=== PATIENT | female | born 1990 | race Caucasian/White ===

== ENCOUNTER 2022-08-24 08:29 | Outpatient (CLI) | payer OTHER, SELFPAY ==
[2022-08-24 09:23] LABS: Beta HCG Quantitative 12.22 mIU/ML
== END 2022-08-24 08:30 | disposition home or self-care (01) ==
LOC: ANHLAB 08:36
DX: Z32.02 Encounter for pregnancy test, result negative (principal)
CPT/HCPCS: 36415; 84702

== ENCOUNTER 2022-08-27 09:10 | Outpatient (CLI) | payer OTHER, SELFPAY ==
[2022-08-27 10:03] LABS: Beta HCG Quantitative 55.48 mIU/ML
== END 2022-08-27 09:11 | disposition home or self-care (01) ==
PROVIDERS: Referring Provider Obstetrics & Gynecology
DX: Z32.02 Encounter for pregnancy test, result negative (principal)
CPT/HCPCS: 36415; 84702

== ENCOUNTER 2022-10-15 09:04 | Outpatient (CLI) | payer OTHER, SELFPAY ==
[2022-10-15 09:52] LABS: Beta HCG Quantitative 331.33 mIU/ML
== END 2022-10-15 09:05 | disposition home or self-care (01) ==
DX: Z32.02 Encounter for pregnancy test, result negative (principal)
CPT/HCPCS: 36415; 84702

== ENCOUNTER 2025-05-04 14:14 | Emergency (ER) | payer OTHER, SELFPAY ==
[2025-05-04 14:29] VITALS: BP 122/73; PULSE 64; RESP 20; TEMP 36.4; O2SAT 100
--- NOTE | 2025-05-04 15:08 | ED_ITS ---
HPI - General Adult General Chief complaint: Back Pain/Injury Stated complaint: Back Pain Time Seen by Provider: 05/04/25 15:09 Source: patient, RN notes reviewed and old records reviewed Mode of arrival: ambulatory Limitations: no limitations History of Present Illness HPI narrative: 34-year-old female presents to the [facility] with right flank pain this started yesterday, now radiating into the right sided abdominal area. Patient reports that it started yesterday. Did take an ibuprofen and a muscle relaxer with no relief. States that she did take muscle relaxer also this morning with no relief. Patient reports nausea. States the pain has been increasing. Denies any frequency or urgency or burning with urination. denies fevers. Denies chest pain or shortness of breath. No URI symptoms patient reports something similar approximately 7-10 years ago, was prescribed a steroid and pain medication. Unsure of diagnosis thinks it might of been pleurisy or a pleural effusion Onset (ago): day(s) (1) Treatments prior to arrival: NSAID and other ( Muscle relaxer) Related Data Home Medications ?Medication ?Instructions ?Recorded ?Confirmed ?Last Taken ?Type escitalopram oxalate 20 mg tablet 20 mg PO DAILY 03/1804/09/25 Unknown History (Lexapro) lorazepam 1 mg tablet (Ativan) 1 mg PO DAILY PRN 03/1804/09/25 Unknown History propranolol 20 mg tablet 20 mg PO Q12H 03/18/2504/09 Unknown History Allergies Allergy/AdvReac Type Severity Reaction Status Date / Time Penicillins Allergy Mild Anaphylaxis Verified 03/18/25 09:57 amoxicillin Allergy Unknown swelling Verified 03/18/25 09:57 of throat and eyes cat dander Allergy Unknown Unknown Verified 03/18/25 09:57 AMOXICILLIN TRIHYDRATE Allergy Intermediate Swelling Uncoded 03/18/25 09:57 POTASSIUM CLAVULANATE Allergy Intermediate Swelling Uncoded 03/18/25 09:57 Review of Systems 2 Review of Systems: All systems reviewed & are unremarkable except as noted in HPI and below Constitutional: Constitutional: Reports no additional constitutional complaints ENT: Reports system reviewed and no additional complaints, except as documented Cardiovascular: Cardiovascular: Reports no additional cardiovascular complaints, Denies chest pain and Denies dyspnea Respiratory: Respiratory: Reports no additional respiratory complaints, Denies chest congestion, Denies cough and Denies dyspnea Gastrointestinal: Gastrointestinal: Reports as per HPI Genitourinary: Genitourinary: Reports as per HPI Musculoskeletal: Musculoskeletal: Reports as per HPI and Reports back pain ( right flank) Integumentary/Breasts: Skin/Breast: Reports system reviewed and no additional complaints, except as docu [facility] Past Medical History Medical History Melanoma Complete heart block Neurocardiogenic syncope Hussein's syndrome Anxiety GERD (gastroesophageal reflux disease) Surgical History Surgical History History of surgery of uterus uterine polyp removal [place] teeth removed S/P placement of cardiac pacemaker Family History Family History Other History of cancer Social History Social History Smoking status: Never smoker Second hand tobacco smoke exposure: No Alcohol intake: current Substance use: never Substance use type: does not use Lack of Transportation: No Lack of Food: Never True Current Housing: I Have Housing Concerned About Future Housing: No Difficulty Paying Gas/Electric Bills: No Difficulty Paying for Meds: No Currently Unemployed: No Education: Master's Degree or Higher Difficulty w/ Childcare or Family Care: No Comments At the time of my signature, I reviewed and agree with the nursing past medical, surgical, social, and family history. There is no relevant family history pertinent to the patient complaint. Exam 2 Const: General: cooperative, well developed, alert, uncomfortable, well groomed and well nourished; No anxious, confusion or diaphoretic Nutritional Appearance: well nourished and obese Orientation/consciousness: patient oriented x3 Limitations: no limitations HENMT: Head: normal to inspection Mouth: Yes Normal oral and palatal mucosa present, Yes lip normal, Yes tongue normal and Yes moist mucous membranes Eyes: General: appearance normal, both eyes and all related structures A lignment and Position: alignment normal Neck: Neck: normal visual inspection, full ROM, no lymphadenopathy and no meningeal signs Chest: Chest palpation & inspection: normal inspection of the chest Resp: Effort & Inspection: normal respiratory effort and able to speak in complete sentences Auscultation: clear to auscultation bilaterally, no crackles, no rales, no rhonchi and no wheezes Cardio: Rate: regular rate GI: GI Palp: No abdominal tenderness, Yes Soft to palpation and No Guarding due to palpation present (GI) : General: Yes CVA tenderness on the right Back/Spine/Pelvis: Back/spine/pelvis image: 1. tender to palpation Skin: General skin exam: normal color and no rashes or lesions noted Neuro: General: patient oriented x3, gait normal, moves all extremities and no meningeal signs Cognition (Neuro): normal cognition Speech: normal speech Gait exam (Neuro): Normal gait present Extrem: General: normal to inspection, full ROM, capillary refill normal and normal gait Psych: Appearance: grossly normal and well kempt Mental Status: mental status grossly normal Speech and movement: Normal speech and movement present and Clear speech present Affect: normal affect Attitude: cooperative Course Course Level of Care: Express Care Visit Vital Signs Vital signs: Vital Signs Temperature 97.5 F L 05/04/25 14:29 Pulse Rate 64 05/04/25 14:29 Respiratory Rate 20 05/04/25 14:29 Blood Pressure 122/73 05/04/25 14:29 Pulse Oximetry 100 05/04/25 14:29 Oxygen Delivery Room Air 05/04/25 14:29 Temperature 97.5 F L 05/04/25 14:29 Pulse Rate 64 05/04/25 14:29 Respiratory Rate 20 05/04/25 14:29 Blood Pressure 122/73 05/04/25 14:29 Pulse Oximetry 100 05/04/25 14:29 Oxygen Delivery Room Air 05/04/25 14:29 Reviewed Transfer Transfered to: [facility] ( per patient request) Transportation: Other ( declined EMS. Patient states that she has well enough to drive herself.) Transfer rationale: Patient with right flank pain since yesterday. Has taken ibuprofen and a muscle relaxer with no relief. Patient stating the pain has been getting worse. Accepting physician: Spoke with Dr. Ra Lucas Medical Decision Making MDM Narrative Medical decision making narrative: patient appears uncomfortable in exam room. Patient is nontoxic and vitals are stable. Patient presents 1 day history of if increasing pain to the right flank area. Urine with trace leukocytes, +1 blood. Patient appears uncomfortable, sending for higher level of care to rule out kidney stone, pyelonephritis patient agrees to go by POV to [facility] transfer instructions reviewed with patient to go directly to the ER. Do not eat or drink until cleared by ER provider All questions have been answered, and the patient deny any further questions Some parts of this dictation were generated by voice recognition software and may contain typographical and/or grammatical inaccuracies. Differential Diagnosis Differential Diagnosis: kidney stone, pyelonephritis, appendicitis, cholecystitis, bowel blockage, gastroenteritis Medical Records Medical records reviewed: Yes I reviewed the external patient's medical records. Vital Signs Vital Signs: Vital Signs Temperature 97.5 F L 05/04/25 14:29 Pulse Rate 64 05/04/25 14:29 Respiratory Rate 20 05/04/25 14:29 Blood Pressure 122/73 05/04/25 14:29 Pulse Oximetry 100 05/04/25 14:29 Oxygen Delivery Room Air 05/04/25 14:29 Temperature 97.5 F L 05/04/25 14:29 Pulse Rate 64 05/04/25 14:29 Respiratory Rate 20 05/04/25 14:29 Blood Pressure 122/73 05/04/25 14:29 Pulse Oximetry 100 05/04/25 14:29 Oxygen Delivery Room Air 05/04/25 14:29 Reviewed Lab Data Lab results reviewed: Yes I reviewed the patient's lab results. Labs: Reviewed Critical Care Time Critical Care Time Critical Care Time: No Discharge Plan Discharge Clinical Impression: Acute right flank pain Patient Disposition: Acute Care Hospital Condition: Stable Patient Language: Omani Prescriptions: No Action lorazepam [Ativan] 1 mg tablet 1 mg PO DAILY PRN propranolol 20 mg tablet 20 mg PO Q12H escitalopram oxalate [Lexapro] 20 mg tablet 20 mg PO DAILY nystatin-triamcinolone 100,000-0.1 unit/gram-% ointment 1 applic topical BID Qty: 30 0RF Follow-up/Referrals: PHYSICIAN,LABORATORY SUPERVISOR [Primary Care Provider, Internal Medicine]
[2025-05-04 15:22] VITALS: BP 116/83; PULSE 63; RESP 20; TEMP 36.9; O2SAT 100
[2025-05-04 15:31] LABS: EDUAAPPEAR Clear; EDUABILI Negative (Negative); EDUABLOOD 1+ (Negative); EDUACOLOR1 Yellow; EDUAGLUCOSE Negative (Negative); EDUAKETONE Negative (Negative); EDUALEUKO Trace (Negative); EDUANITRATE Negative (Negative); EDUAPH 7.5; EDUAPROTEIN Negative (Negative); EDUASPGRAVITY 1.020; EDUAUROBILI 0.2
== END 2025-05-04 15:22 | disposition short-term general hospital (02) ==
PROVIDERS: Emergency Provider Nurse Practitioner
DX: R10.A1 Flank pain, right side (principal); K21.9 Gastro-esophageal reflux disease without esophagitis; F41.9 Anxiety disorder, unspecified; Z85.820 Personal history of malignant melanoma of skin; Z95.0 Presence of cardiac pacemaker
CPT/HCPCS: 81003; 99212; G0463

== ENCOUNTER 2025-05-04 15:49 | Emergency (ER) | payer OTHER, SELFPAY ==
--- NOTE | ~2025-05-04 | XR_ITS ---
EXAMINATION: XR chest 2V DATE: 05/04/2025 19:47 INDICATION: Right-sided chest pain. TECHNIQUE: Frontal and lateral views of the chest were obtained. COMPARISON: None. FINDINGS: Heart size is normal. Lungs are clear of acute processes. Pacemaker device in place. IMPRESSION: 1. No acute findings. Reviewed, dictated and finalized at location T. ODUCER IMPRESSION: 1. No acute findings.
--- NOTE | ~2025-05-04 | CT_ITS ---
EXAMINATION: CT abdomen pelvis w con DATE: 05/04/2025 20:36 INDICATION: 34 year-old with right upper quadrant, right flank pain. TECHNIQUE: Computed tomography (CT) of the abdomen and pelvis was performed 100 cc intravenous contrast. Automated exposure control and iterative reconstruction technique were employed. The dose-length product was 1250.41 mGy-cm. COMPARISON: None. FINDINGS: The lung bases do not show acute findings. Pacemaker device is noted within the right ventricle. Mild hepatomegaly. Normal size spleen. Calcified gallstone in the gallbladder. No evidence of cholecystitis. Intrahepatic and extrahepatic bile ducts are normal in size. No calculi or obstruction of the kidneys. No evidence of small bowel obstruction. Normal size appendix. Thank you bulky uterus. No adnexal mass or fluid collections are seen. IMPRESSION: 1. No acute findings noted in the upper abdomen and pelvis. 2. Mild hepatomegaly. 3. Calcified gallstone in the gallbladder. No evidence of cholecystitis. Bile ducts are normal in size. Reviewed, dictated and finalized at location T. [facility] IMPRESSION: 1. No acute findings noted in the upper abdomen and pelvis. 2. Mild hepatomegaly. 3. Calcified gallstone in the gallbladder. No evidence of cholecystitis. Bile d ucts are normal in size.
[2025-05-04 15:59] VITALS: BP 140/86; PULSE 68; RESP 18; TEMP 36.3; O2SAT 100
--- NOTE | 2025-05-04 18:18 | ED_ITS ---
HPI - Back Pain/Injury General Chief Complaint: Back Pain/Injury <SETH Giles Last Filed: 05/04/25 18:34> Stated Complaint: back pain <SETH Giles Last Filed: 05/04/25 18:34> Time Seen by Provider: 05/04/25 18:19 <SETH Giles Last Filed: 05/04/25 18:34> Focused HPI: Patient is a 34 y/o female, with PMH of pacemaker, seizure disorder, neurogenic syncope, Hussein's syndrome, who presents to the ED with c/o R flank pain. Patient reports having pain throughout her R mid/upper back since yesterday. Pain has been progressively worsening since then. Worse with movement/deep breathing. Has been feeling short of breath. Does radiate around slightly to her R upper abdomen. Denies pain worse with eating. Described as a sharp/stabbing pain. Tried taking ibuprofen/muscle relaxers w/o improvement. Reports Hx of pleurisy and states current pain feels similar. Denies recent cough/cold sx's, N/V. Denies strenuous activity, heavy lifting, recent travel, hx of kidney stones/blood clots. Was seen at urgent care today and referred here for further evaluation. Was noted to have microscopic blood in urine at urgent care. Denies dysuria. GENERAL: Well-appearing, well-nourished, and in no acute distress. HEAD: Normocephalic, atraumatic. CHEST: Clear to auscultation. ?No respiratory distress. No focal lung sounds. HEART: Regular rate and rhythm.? MSK: TTP throughout lateral upper right abdomen, R mid/lower thoracic region. No midline spinal tenderness NEURO: ?Alert and oriented x3. Patient screened in triage and initial orders placed.? ?Additional care and disposition to be based upon?diagnostic testing and treatment. <SETH Giles Last Filed: 05/04/25 18:34> Source: patient <SETH Giles Last Filed: 05/04/25 18:34> Mode of arrival: ambulatory <SETH Giles Last Filed: 05/04/25 18:34> Limitations: no limitations <Shani Villafana PA-C - Last Filed: 05/04/25 18:34> History of Present Illness HPI Narrative: I agree with the above HPI. <Monse Mason APRN - Last Filed: 05/04/25 21:56> Related Data Home Medications: Home Medications ?Medication ?Instructions ?Recorded ?Confirmed ?Last Taken ?Type escitalopram oxalate 20 mg tablet 20 mg PO DAILY 03/1804/09/25 Unknown History (Lexapro) lorazepam 1 mg tablet (Ativan) 1 mg PO DAILY PRN 03/1804/09/25 Unknown History propranolol 20 mg tablet 20 mg PO Q12H 03/18/2504/09 Unknown History <Shani Villafana PA-C - Last Filed: 05/04/25 18:34> Allergies/Adverse Reactions: Allergies Allergy/AdvReac Type Severity Reaction Status Date / Time Penicillins Allergy Mild Anaphylaxis Verified 03/18/25 09:57 amoxicillin Allergy Unknown swelling Verified 03/18/25 09:57 of throat and eyes cat dander Allergy Unknown Unknown Verified 03/18/25 09:57 AMOXICILLIN TRIHYDRATE Allergy Intermediate Swelling Uncoded 03/18/25 09:57 POTASSIUM CLAVULANATE Allergy Intermediate Swelling Uncoded 03/18/25 09:57 <Shani Villafana PA-C - Last Filed: 05/04/25 18:34> Review of Systems 2 Review of Systems: All systems reviewed & are unremarkable except as noted in HPI and below <Monse Mason APRN - Last Filed: 05/04/25 21:56> [facility] Past Medical History Medical History: Medical History Melanoma Complete heart block Neurocardiogenic syncope Hussein's syndrome Anxiety GERD (gastroesophageal reflux disease) <Shani Villafana PA-C - Last Filed: 05/04/25 18:34> Surgical History Surgical History: Surgical History History of surgery of uterus uterine polyp removal [place] teeth removed S/P placement of cardiac pacemaker <Shani Villafana PA-C - Last Filed: 05/04/25 18:34> Family History Family History: Family History Other History of cancer <Shani Villafana PA-C - Last Filed: 05/04/25 18:34> Social History Social History: Social History Smoking status: Never smoker Second hand tobacco smoke exposure: No Alcohol intake: current Substance use: never Substance use type: does not use Lack of Transportation: No Lack of Food: Never True Current Housing: I Have Housing Concerned About Future Housing: No Difficulty Paying Gas/Electric Bills: No Difficulty Paying for Meds: No Currently Unemployed: No Education: Master's Degree or Higher Difficulty w/ Childcare or Family Care: No <Shani Villafana PA-C - Last Filed: 05/04/25 18:34> Exam 2 Narrative: GENERAL: Well appearing, well-nourished, non-toxic, in no acute distress. HEAD: Normocephalic, atraumatic. NECK: Supple. No adenopathy, no masses. RESPIRATORY: Airway patent, respirations nonlabored. Clear to auscultation bilaterally, no rales, rhonchi, wheezing. CARDIOVASCULAR: Regular rate and rhythm without murmurs, rubs, or gallops. Peripheral pulses 2+ and equal bilaterally. ABDOMINAL: Soft, nontender, nondistended, TTP throughout lateral upper right abdomen, R mid/lower thoracic region. MUSCULOSKELETAL: Moves all extremities. Strength/ROM intact without gross deformities. No midline spinal tenderness SKIN: Warm, dry, normal color. No rashes. NEURO: A&O X3. Speech clear. Cranial nerves II-XII intact. No ataxic movements. PSYCHIATRIC: Appropriate mood and affect. Normal interaction. <Monse Mason APRN - Last Filed: 05/04/25 21:56> Course Vital Signs Vital signs: Vital Signs Temperature 36.3 C L 05/04/25 15:59 Pulse Rate 68 05/04/25 15:59 Respiratory Rate 18 05/04/25 15:59 Blood Pressure 140/86 05/04/25 15:59 Pulse Oximetry 100 05/04/25 15:59 Temperature 36.7 C 05/04/25 18:23 Pulse Rate 77 05/04/25 18:23 Respiratory Rate 20 05/04/25 18:23 Blood Pressure 147/95 H 05/04/25 18:23 Pulse Oximetry 98 05/04/25 18:23 <Shani Villafana PA-C - Last Filed: 05/04/25 18:34> Vital Signs Temperature 36.3 C L 05/04/25 15:59 Pulse Rate 68 05/04/25 15:59 Respiratory Rate 18 05/04/25 15:59 Blood Pressure 140/86 05/04/25 15:59 Pulse Oximetry 100 05/04/25 15:59 Temperature 36.7 C 05/04/25 18:23 Pulse Rate 77 05/04/25 18:23 Respiratory Rate 20 05/04/25 18:23 Blood Pressure 147/95 H 05/04/25 18:23 Pulse Oximetry 98 05/04/25 18:23 <Monse Mason, NE[employer] E[employer] ARCHEOLOGY PROFESSOR - Last Filed: 05/04/25 21:56> MDM - Back Pain/Injury MDM Narrative Medical decision making narrative: MSE by RISA in triage. <Shani Villafana PA-C - Last Filed: 05/04/25 18:34> MSE by RISA in triage. Patient is a 34 y/o female, with PMH of pacemaker, seizure disorder, neurogenic syncope, Hussein's syndrome, who presents to the ED with c/o R flank pain. Patient reports having pain throughout her R mid/upper back since yesterday. Pain has been progressively worsening since then. Worse with movement/deep breathing. Has been feeling short of breath. Does radiate around slightly to her R upper abdomen. Denies pain worse with eating. Described as a sharp/stabbing pain. Tried taking ibuprofen/muscle relaxers w/o improvement. Reports Hx of pleurisy and states current pain feels similar. Denies recent cough/cold sx's, N/V. Denies strenuous activity, heavy lifting, recent travel, hx of kidney stones/blood clots. Labs Ordered: CBC, CMP, UA, lipase, PTT, INR Imaging Ordered: CT abdomen pelvis, chest x-ray Medications Ordered: Ellsworth 5/325mg x2, Toradol IV, morphine 4 mg IV Results: Pt's CT scan indicates The lung bases do not show acute findings. Pacemaker device is noted within the right ventricle. Mild hepatomegaly. Normal size spleen. Calcified gallstone in the gallbladder. No evidence of cholecystitis. Intrahepatic and extrahepatic bile ducts are normal in size. No calculi or obstruction of the kidneys. No evidence of small bowel obstruction. Normal size appendix. Bulky uterus. No adnexal mass or fluid collections are seen. Diagnosis: gallstone, biliary colic, urinary tract infection Consults: general surgery (outpatient), Dr. Choudhury Patient Education/Shared MDM: Results of lab work and imaging shared with patient. She endorses improvement of symptoms following medication administration. Patient is very tearful upon discussion with nurse practitioner, as she has had multiple medical issues in the past with and reports I just can not deal with one more at this time. She was given extensive education regarding diet changes, and medication for symptom control. Patient strongly advised to maintain hydration status upon discharge and follow- up general surgery as needed. She will be discharged home with a prescription for Bactrim. Strict return precautions provided. Patient verbalized understanding and is in agreement with plan. Vital signs stable at time of discharge. All questions answered. <Monse Mason APRN - Last Filed: 05/04/25 21:56> Differential Diagnosis Differential diagnosis: Likely other (Cholecystitis, gallstone, biliary colic, kidney stone, urinary tract infection) <Monse Mason APRN - Last Filed: 05/04/25 21:56> Lab Data Attestation: I reviewed the patient's lab results. <Monse Mason APRN - Last Filed: 05/04/25 21:56> Result diagrams: 05/04/25 18:30 05/04/25 18:30 <Shani Villafana PA-C - Last Filed: 05/04/25 18:34> Labs: Lab Results 05/04/25 05/04/25 Range/Units 18:30 20:08 WBC 8.0 (4.5-10.0) K/mm3 RBC 4.46 (4.2-5.4) M/mm3 Hgb 13.5 (12.0-15.0) g/dL Hct 41.9 (37.0-47.0) % MCV 93.9 (80-100) fl MCH 30.3 (26-34) pg MCHC 32.2 (32-36) g/dl RDW 12.7 (11.5-14.5) % Plt Count 216 (150-375) k/mm3 MPV 9.4 (7.4-10.4) fl Immature Gran % (Auto) 0.3 (0-0.5) % Neut % (Auto) 60.8 (45.5-73.1) % Lymph % (Auto) 28.4 (18.3-44.2) % Randall % (Auto) 8.5 (2.6-8.5) % Eos % (Auto) 1.6 (0-4.4) % Baso % (Auto) 0.4 (0.2-1.2) % Lymph # (Auto) 2.27 (0.9-3.2) K/mm3 Randall # (Auto) 0.7 H (0.1-0.6) K/mm3 Eos # (Auto) 0.1 (0-0.3) K/mm3 Baso # (Auto) 0.0 (0.0-0.1) K/mm3 Abs Immat Gran (auto) 0.02 (0.00-0.031) K/mm3 Absolute Neuts (auto) 4.9 (1.3-6.7) K/mm3 Absolute Nucleated RBC 0.000 (0.0-0.012) K/mm3 Nucleated RBC % 0.0 (0.0-0.2) % PT 12.1 (11.1-14.7) Seconds INR 0.9 APTT 28.1 (22.3-36.8) Seconds D-Dimer 0.28 (<0.48) ug/mL Sodium 138 (137-145) mmol/L Potassium 4.0 (3.4-5.0) mmol/L Chloride 101 (98-107) mmol/L Carbon Dioxide 28 (22-30) mmol/L Anion Gap 9 (4-12) mmol/L BUN 11 (7-17) mg/dL Creatinine 0.81 (0.7-1.0) mg/dL Estim Creat Clear Calc 110 ml/min Estimated GFR > 60 (59 - ) Glucose 101 (65-110) mg/dL Calcium 9.6 (8.4-10.2) mg/dL Total Bilirubin 0.4 (0.2-1.3) mg/dL AST 26 (14-36) U/L ALT 16 (6-35) U/L Alkaline Phosphatase 72 (38-126) U/L Total Protein 7.9 (6.3-8.2) g/dL Albumin 4.8 (3.5-5.1) g/dL Lipase 118 (23-300) U/L Urine Color Yellow (Yellow) Urine Appearance Clear (Clear) Urine pH 6.5 (5.0-9.0) Ur Specific [place] 1.013 (1.001-1.035) Urine Protein Negative (Negative) mg/dL Urine Glucose (UA) Negative (Negative) mg/dL Urine Ketones Negative (Negative) mg/dL Ur Blood (Man) Non-hemolyzed trace H (Negative) Urine Nitrate Negative (Negative) Urine Bilirubin Negative (Negative) Urine Urobilinogen 0.2 (<2.0) mg/dL Leukocyte Esterase Rfl Trace H (Negative) LAKSHMI/UL Urine RBC 0-2 (0-2) /hpf Urine WBC 6-10 H (0-3) /hpf Ur Squamous Epith Cells Few (Few) /hpf Urine Bacteria None seen /hpf Urine Casts 0-2 POC Urine HCG, Qual Negative (Negative) <Shani Villafana PA-C - Last Filed: 05/04/25 18:34> Lab Results 05/04/25 05/04/25 Range/Units 18:30 20:08 WBC 8.0 (4.5-10.0) K/mm3 RBC 4.46 (4.2-5.4) M/mm3 Hgb 13.5 (12.0-15.0) g/dL Hct 41.9 (37.0-47.0) % MCV 93.9 (80-100) fl MCH 30.3 (26-34) pg MCHC 32.2 (32-36) g/dl RDW 12.7 (11.5-14.5) % Plt Count 216 (150-375) k/mm3 MPV 9.4 (7.4-10.4) fl Immature Gran % (Auto) 0.3 (0-0.5) % Neut % (Auto) 60.8 (45.5-73.1) % Lymph % (Auto) 28.4 (18.3-44.2) % Randall % (Auto) 8.5 (2.6-8.5) % Eos % (Auto) 1.6 (0-4.4) % Baso % (Auto) 0.4 (0.2-1.2) % Lymph # (Auto) 2.27 (0.9-3.2) K/mm3 Randall # (Auto) 0.7 H (0.1-0.6) K/mm3 Eos # (Auto) 0.1 (0-0.3) K/mm3 Baso # (Auto) 0.0 (0.0-0.1) K/mm3 Abs Immat Gran (auto) 0.02 (0.00-0.031) K/mm3 Absolute Neuts (auto) 4.9 (1.3-6.7) K/mm3 Absolute Nucleated RBC 0.000 (0.0-0.012) K/mm3 Nucleated RBC % 0.0 (0.0-0.2) % PT 12.1 (11.1-14.7) Seconds INR 0.9 APTT 28.1 (22.3-36.8) Seconds D-Dimer 0.28 (<0.48) ug/mL Sodium 138 (137-145) mmol/L Potassium 4.0 (3.4-5.0) mmol/L Chloride 101 (98-107) mmol/L Carbon Dioxide 28 (22-30) mmol/L Anion Gap 9 (4-12) mmol/L BUN 11 (7-17) mg/dL Creatinine 0.81 (0.7-1.0) mg/dL Estim Creat Clear Calc 110 ml/min Estimated GFR > 60 (59 - ) Glucose 101 (65-110) mg/dL Calcium 9.6 (8.4-10.2) mg/dL Total Bilirubin 0.4 (0.2-1.3) mg/dL AST 26 (14-36) U/L ALT 16 (6-35) U/L Alkaline Phosphatase 72 (38-126) U/L Total Protein 7.9 (6.3-8.2) g/dL Albumin 4.8 (3.5-5.1) g/dL Lipase 118 (23-300) U/L Urine Color Yellow (Yellow) Urine Appearance Clear (Clear) Urine pH 6.5 (5.0-9.0) Ur Specific [place] 1.013 (1.001-1.035) Urine Protein Negative (Negative) mg/dL Urine Glucose (UA) Negative (Negative) mg/dL Urine Ketones Negative (Negative) mg/dL Ur Blood (Man) Non-hemolyzed trace H (Negative) Urine Nitrate Negative (Negative) Urine Bilirubin Negative (Negative) Urine Urobilinogen 0.2 (<2.0) mg/dL Leukocyte Esterase Rfl Trace H (Negative) LAKSHMI/UL Urine RBC 0-2 (0-2) /hpf Urine WBC 6-10 H (0-3) /hpf Ur Squamous Epith Cells Few (Few) /hpf Urine Bacteria None seen /hpf Urine Casts 0-2 POC Urine HCG, Qual Negative (Negative) <Monse Mason APRN - Last Filed: 05/04/25 21:56> Imaging Data Attestation: I personally reviewed and interpreted this imaging study as follows: < Monse Mason APRN - Last Filed: 05/04/25 21:56> Radiologist's impression: Impressions Chest X-Ray 05/04/25 19:49 IMPRESSION: 1. No acute findings. Abdomen/Pelvis CT 05/04/25 20:37 IMPRESSION: 1. No acute findings noted in the upper abdomen and pelvis. 2. Mild hepatomegaly. 3. Calcified gallstone in the gallbladder. No evidence of cholecystitis. Bile ducts are normal in size. <Monse Mason APRN - Last Filed: 05/04/25 21:56> Discharge Plan Discharge Clinical Impression: Gallstone, Urinary tract infection, Right upper quadrant abdominal pain with calculus of gallbladder present on ultrasound <SETH Giles Last Filed: 05/04/25 18:34> Patient Disposition: Home <SETH Giles Last Filed: 05/04/25 18:34> Condition: Stable <SETH Giles Last Filed: 05/04/25 18:34> Instructions: Antibiotic Form, Gallstones (ED) <Shani Villafana PA-C - Last Filed: 05/04/25 18:34> Additional Instructions: Please return to the ER with any worsening symptoms. Follow-up with General surgery for further evaluation and treatment. Take all medications as prescribed, including regularly scheduled medications. You may take Ibuprofen and/or Tylenol for pain control. Please take Ellsworth <Shani Villafana PA-C - Last Filed: 05/04/25 18:34> Patient Language: French <Shani Villafana PA-C - Last Filed: 05/04/25 18:34> Prescriptions: New sulfamethoxazole-trimethoprim [Bactrim DS] 800-160 mg tablet 1 tablet PO Q12H 5 Days Qty: 10 0RF hydrocodone-acetaminophen 5-325 mg tablet 1 tablet PO Q6H PRN (Reason: pain) Qty: 10 0RF No Action lorazepam [Ativan] 1 mg tablet 1 mg PO DAILY PRN propranolol 20 mg tablet 20 mg PO Q12H escitalopram oxalate [Lexapro] 20 mg tablet 20 mg PO DAILY nystatin-triamcinolone 100,000-0.1 unit/gram-% ointment 1 applic topical BID Qty: 30 0RF <Shani Villafana PA-C - Last Filed: 05/04/25 18:34> Follow-up/Referrals: PHYSICIAN,F[employer]ERGL[employer] BONDING MACHINE TENDER [Non-Staff, Internal Medicine] Kee Choudhury DO [Physician, General Surgery] <ESTH Giles Last Filed: 05/04/25 18:34> Stand Alone Forms: Work/School Release IP <SETH Giles Last Filed: 05/04/25 18:34> Time of Disposition: 21:56 <SETH Giles Last Filed: 05/04/25 18:34> 21:56 <Monse Mason APRN - Last Filed: 05/04/25 21:56>
[2025-05-04 18:23] VITALS: BP 147/95; PULSE 77; RESP 20; TEMP 36.7; O2SAT 98
[2025-05-04] MEDS: HYDROcodone/acetaminophen (*CRX) 5-325 MG TABLET 1 TAB PO ×2 (18:30→21:49)
[2025-05-04 18:37] LABS: Hematocrit 41.9 % (37.0-47.0); Hemoglobin 13.5 g/dL (12.0-15.0); Immature Granulocyte Percent A 0.3 % (0-0.5); Lymphocytes Absolute Auto 2.27 K/mm3 (0.9-3.2); Mean Corpuscular HGB Conc 32.2 g/dl (32-36); Mean Corpuscular Hemoglobin 30.3 pg (26-34); Mean Corpuscular Volume 93.9 fl (80-100); Nucleated Red Blood Cells Absolute Auto 0.000 K/mm3 (0.0-0.012); Nucleated Red Blood Cells Perc 0.0 % (0.0-0.2); Platelet Count Result 216 k/mm3 (150-375); Red Blood Count 4.46 M/mm3 (4.2-5.4); White Blood Count 8.0 K/mm3 (4.5-10.0)
[2025-05-04 18:48] LABS: Alanine Aminotransferase 16 U/L (6-35); Albumin Level 4.8 g/dL (3.5-5.1); Alkaline Phosphatase 72 U/L (38-126); Anion Gap 9 mmol/L (4-12); Aspartate Amino Transferase 26 U/L (14-36); Bilirubin,Total 0.4 mg/dL (0.2-1.3); Blood Urea Nitrogen 11 mg/dL (7-17); Calcium 9.6 mg/dL (8.4-10.2); Carbon Dioxide 28 mmol/L (22-30); Chloride 101 mmol/L (98-107); Estimated CRCL calculation 110 ml/min; Estimated Glomerular Filt Rate > 60; Glucose 101 mg/dL (65-110); Lipase 118 U/L (23-300); Potassium 4.0 mmol/L (3.4-5.0); Sodium 138 mmol/L (137-145); Total Protein 7.9 g/dL (6.3-8.2)
[2025-05-04 19:11] LABS: INR 0.9; Prothrombin Time 12.1 Seconds (11.1-14.7)
[2025-05-04 19:12] LABS: Partial Thromboplastin Time 28.1 Seconds (22.3-36.8)
[2025-05-04 20:12] LABS: BEDSIDEPREGUCG Negative (Negative)
[2025-05-04] MEDS: MORPHINE SULFATE (*CRX) 4 MG/ML INJ IV PUSH (20:37)
[2025-05-04 20:42] LABS: Add Urine Microscopic? YES; Appearance Urine Clear (Clear); Glucose Urine UA Negative (Negative); Leukocyte Esterase Ur Trace LEU/UL (Negative); Nitrate Urine Negative (Negative); Non Pathogenic Casts 0-2; Specific Grav Ur 1.013 (1.001-1.035)
[2025-05-04] MEDS: KETOROLAC 15 MG/ML VIAL (*BKC) IV PUSH (21:48)
[2025-05-04] MEDS: SULFAMETHOXAZOLE/TRIMETHOPRIM 800/160 MG DS TABLET 1 TAB PO (21:51)
[2025-05-04 22:18] VITALS: BP 133/84; PULSE 68; RESP 16; O2SAT 98
--- OUTSIDE RECORDS SUMMARY | 2025-05-05 05:06 | XMS_ITS | Clinical Summary ---
Author Organization [facility] Address [address] [facility] [address] [place] [id number] Phone Care Team Providers Care Pediatric Neurologist Name Role Phone Roxanna Flanagan NP Primary Care Provider [phone] Aurelia Ballard MD Unavailable Catrachita Brown MD Unavailable [phone] Jada Mohan Unavailable Unavailable Allergies Active Allergy Reactions Criticality Noted Date Comments Cat Hair Standardized Allergenic Extract Other (See comments) Low Throat scratching Penicillin G Anaphylaxis High Penicillins Anaphylaxis High 10/24/2022 Medications propranoloL (INDERAL) 20 mg tablet Take 1.5 tablets (30 mg total) by mouth 2 (two) times a day 0.5 tablet in the morning and 1 tablet at night 2 Active lurasidone (LATUDA) 20 mg tablet Take 1 tablet (20 mg total) by mouth daily 4 Active metFORMIN (GLUCOPHAGE) 500 mg tablet Take 1 tablet (500 mg total) by mouth daily with breakfast 4 Active escitalopram (LEXAPRO) 10 mg tablet Take 1 tablet (10 mg total) by mouth daily Active fluconazole (DIFLUCAN) 150 mg tablet Take 1 pill for yeast then 1 week later take the 2nd pill 2 tablet 5 Active methylPREDNISol one (MEDROL DOSEPACK) 4 mg Dosepack Take as directed on package. 21 tablet 5 Active Active Problems Problem Noted Date Diagnosed Date MDD (major depressive disord er), recurrent episode, moderate 01/01/2025 BOWEN (generalized anxiety disorder) 03/06/2024 Assessment & Plan (06/18/2024 11:00 AM ROSE GRADING SUPERVISOR): Patient reiterated no suicidal thoughts at this time; take medication as directed; contact 911 and go to the ER if becomes suicidal; discussed side effects of medication with patient; encouraged healthy diet and exericise; encouraged patient to see a counselor. HPI: Condition is stable. Is being managed by psychiatry. Was previously on Sertraline for many years and then no longer worked for her. Feels good on current medication regimen. A&P: Continue on Lexapro 10 mg daily and Latuda 20 mg daily. Continue seeing psychiatry. Recommend counseling. SSS (sick sinus syndrome) 11/26/2023 Fitting and adjustment of cardiac pacemaker 11/15 Amenorrhea 10/01/2023 Excessive sweating 10/01/2023 Depression, recurrent 03/04/2023 Assessment & Plan (06/18/2024 11:00 AM ROSE GRADING SUPERVISOR): Patient reiterated no suicidal thoughts at this time; take medication as directed; contact 911 and go to the ER if becomes suicidal; discussed side effects of medication with patient; encouraged healthy diet and exericise; encouraged patient to see a counselor. HPI: Condition is stable. Is being managed by psychiatry. Was previously on Sertraline for many years and then no longer worked for her. Feels good on current medication regimen. A&P: Continue on Lexapro 10 mg daily and Latuda 20 mg daily. Continue seeing psychiatry. Recommend counseling. Encounter for preconception consultation 023 Overview (09/29/2022): We also discussed that vitamins is recommended in women planning , with abstinence from alcohol, illicit drugs, and environmental teratogens. Additionally, screening for cystic fibrosis/SMA should be offered for all women if not previously performed. Class 2 obesity due to exces s calories without serious comorbidity with body mass index (BMI) of 38.0 to 38.9 in adult 01/22/2022 Assessment & Plan (06/18/2024 10:57 AM ROSE GRADING SUPERVISOR): HPI: Condition is not at/near goal. Goal BMI <30. 70+ weight gain after multiple health concerns including IVF, HRT, 2 pregnancies, mental health treatment. A&P: Healthy, high-protein, lower carbohydrate, lower fat lifestyle and exercise for 150min/week recommended. Recommend and encourage CHIP program with me - handout given. Assessment & Plan (10/12/2022 2:25 PM CDT): She had concerns today that weight gain could be due to sertraline, however we had extensive discussion that hormonal dysregulation after and with IVF could be contributing factor. Persistent stress/anxiety is also a contributing factor. She will continue to work on sleep hygiene and will continue with regular physical activity. I encouraged her to look into the book g [employer] revolution to work on strategies for her being glucose/insulin spikes, which could help with emotional regulation, insulin resistance, and weight management. Assessment & Plan (02/13/2022 6:47 AM CDT): 50 lb weight gain in the last year. 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 We will check total insulin and c-peptide to see if we can obtain GLP-1 for her since she is not candidate for phentermine due to extensive cardiac history. Dysautonomia 09/23/2020 10/16/2022 Myopia 03/17/2020 10/16/2022 Syncope, cardiogenic 10/31/2013 Assessment & Plan (06/18/2024 11:04 AM ROSE GRADING SUPERVISOR): HPI: Condition is stable. Chronic hx syncope/collapse. Pacemaker November 2019. Managed by Dr. Cristobal with [facility] Cardiology. A&P: Discussed/ordered labs. Continue Propranolol 20 mg twice daily. Continue to see Cardiology. Resolved Problems Problem Noted Date Diagnosed Date Resolved Date Encounter for induction of labor 06/25/2023 08/15/2023 Overview (06/25/2023): Collette Mejia is a 32 y.o. female at 40w2d who is dated by IVF=1 and is being admitted for an elective induction of labor. Admit to L&D: Consents signed and placed in chart. Labs: CBC and T&S pending. Induction of labor with OT . FWB: Continuous monitoring. Reactive NST. ID: 3rd trimester HIV (>28 wga) pending on admission. GBS negative on 05/31 . RPR on admission: pending. History of genital HSV or HSV 1/2 seropositivity: No. Membrane Status: intact. Indications for UDS: none. Verbal consent obtained for UDS: Not indicated. MOF: Plans to breastfeed. Urine drug screen not indicated. Patient informed of results: N/A. MOC: declines in office . Pain management: Undecided on epidural. Post DVT prophylaxis: The patient has the following MAJOR risk factors BMI >/= 40 and the following MINOR risk factors none. enoxaparin 40 mg daily will be ordered for VTE prophylaxis . For updated weight for dosing. 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 She presented with weight gain, sleep disturbances, temperature instability. She was started on progesterone/estrogen and thyroid replacement. She had endocrine consult with Amanda Moreno in 10/2022, who felt that unlikely Елена. However, the patient has a lot of anxiety around IOL and concern for Елена. The patient would like to have hormone levels followed and will be establishing care with Dr. Kayla Mcfadden in [facility]. Can place 2 PIVs. Will be for ppx rectal miso at time of delivery. #MO:BMI 43 #dep/anxiety: sertraline 150mg care following vaginal delivery 06/25/2023 08/15/2023 Overview (06/27/2023): # ID: Afebrile. No signs/symptoms of infection. 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 Will be establishing care with Dr. Kayla Mcfadden in [facility] . # Heme: #PPH - Admit Hgb 13.0. EBL 800 mL. Received methergine, hemabate, rectal misoprostol. Hemodynamically stable. PPD#1 Hgb 10.7. patient asymptomatic # CV/Pulm: Gestational hypertension - Blood pressures well controlled on no medications. Asymptomatic, denies PAGAN/RUQ pain/vision changes. CBC/CMP wnl (CMP collected 06/27/23), UPC not collected. enrolled in remote BP monitoring- received text. BP normotensive in the last 24 hours. 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 Patient also with PSVT on propranolol. Following with Dr. Cristobal ([facility]). Last interrogated 10/29/22 with pacing <0.1%. Dr Edwards also following for Cardiology care. Continue propranalol 20mg PM. For future cardiac MRI and arrhythmia genetic panel. Patient reports she has a follow up with Dr. Edwards in July. # GI/: Tolerating PO. Voiding spontaneously. # Pain: Controlled with above regimen. #anxiety: stable on zoloft. S/p SW consult # MOC: Declines s/p counseling. # MOF: . Urine drug screen not indicated. Patient informed of results: N/A. # Post DVT prophylaxis: The patient has the following MAJOR risk factors BMI >/= 40 and the following MINOR risk factors none. enoxaparin 40 mg BID ordered for VTE prophylaxis. # Disposition: Follow up to be scheduled with primary OB. Desires discharge home today. Obesity complicating pregnan cy in second trimester 11/19/2022 08/15/2023 Overview (06/18/2023): - BMI 37 Plan [x] Early GTT: ordered 6/-135 [x] Nutrition consult 6/ [x] Specialized anatomy ultrasound [x] Growth US at 34w - serial US not covered by insurance - will check fundal height at visits [x] Weekly testing at 36 weeks for IVF problem Assessment & Plan (04/25/2023 12:55 PM ROSE GRADING SUPERVISOR): - BMI 37 Plan [x] Early GTT: ordered 6/5-135 [x] Nutrition consult 6/5 [x] Specialized anatomy ultrasound [] Growth US at 34w - serial US not covered by insurance - will check fundal height at visits [] Weekly testing at 36 weeks for IVF problem Assessment & Plan (03/28/2023 9:37 AM CDT): - BMI 37 Plan [x] Early GTT: ordered 11/19-135 [x] Nutrition consult 11/19 [] Specialized anatomy ultrasound [] Serial growth ultrasounds q4 weeks starting at 24 weeks [] Weekly testing at 36 weeks for IVF problem Endocrine, nutritional and m etabolic diseases complicating , third trimester 09/29/2022 08/15/2023 Overview (05/31/2023): - Patient with hemorrhage in her initial . Bleeding started during IOL after leiva balloon was placed - presented with weight gain, sleep disturbances, temperature instability - Seen by Dr. Tiffanie Jimenez and placed on premphase (progesterone and estrogen) and liothyronine (was told would help support any thyroid function) for Елена syndrome with improvement - Had elevated insulin and c-peptide with PCP - s/p endocrinology consult with Dr. Dunlap, per Dr. Dunlap unlikely to require pituitary replacement Plan [x] TSH/T4: 0.73 [x] Baseline CMP, UPC: WNL [x] GTT to assess thyroid function, electrolytes and glycemic control- 135 [] Patient requests Endocrine second opinion. She would like to schedule this second opinion for when she is PP so that person seeing her can assess for Елена. She will contact insurance to see which endocrine offices can see her and we will place referral - scheduled 08/20/23. Patient with PTSD from prior experience, would like for above labs to be followed in period - Calling to establish care with Dr. Kayla Mcfadden in [place] [x] Discussed prophylactic misoprostol at time of delivery for PPH prevention. [] Consider crossmatching for blood on admission to labor and delivery. Also discussed having 2 PIVs in labor which patient is amenable to. Assessment & Plan (04/25/2023 12:54 PM ROSE GRADING SUPERVISOR): - Patient with hemorrhage in her initial . Bleeding started during IOL after leiva balloon was placed - presented with weight gain, sleep disturbances, temperature instability - Seen by Dr. Tiffanie Jimenez and placed on premphase (progesterone and estrogen) and liothyronine (was told would help support any thyroid function) for Елена syndrome with improvement - Had elevated insulin and c-peptide with PCP - s/p endocrinology consult with Dr. Dunlap, per Dr. Dunlap unlikely to require pituitary replacement Plan [x] TSH/T4: 0.73 [x] Baseline CMP, UPC: WNL [x] GTT to assess thyroid function, electrolytes and glycemic control- 135 [] Patient requests Endocrine second opinion. She would like to schedule this second opinion for when she is PP so that person seeing her can assess for Елена. She will contact insurance to see which endocrine offices can see her and we will place referral - scheduled 08/20/23. Patient with PTSD from prior experience, would like for above labs to be followed in period [x] Discussed prophylactic misoprostol at time of delivery for PPH prevention. [] Consider crossmatching for blood on admission to labor and delivery Assessment & Plan (03/28/2023 9:35 AM CDT): - Patient with hemorrhage in her initial . Bleeding started during IOL after leiva balloon was placed - presented with weight gain, sleep disturbances, temperature instability - Seen by Dr. Tiffanie Jimenez and placed on premphase (progesterone and estrogen) and liothyronine (was told would help support any thyroid function) for Елена syndrome with improvement - Had elevated insulin and c-peptide with PCP - s/p endocrinology consult with Dr. Dunlap, per Dr. Dunlap unlikely to require pituitary replacement Plan [x] TSH/T4: 0.73 [x] Baseline CMP, UPC: WNL [x] GTT to assess thyroid function, electrolytes and glycemic control- 135 [] Patient requests Endocrine second opinion. She would like to schedule this second opinion for when she is PP so that person seeing her can assess for Елена. She will contact insurance to see which endocrine offices can see her and we will place referral. Patient with PTSD from prior experience, would like for above labs to be followed in period - Discussed prophylactic misoprostol at time of delivery for PPH prevention. 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 This could be contributing to weight gain despite regular exercise and careful monitoring of her diet. Gyne recommends I start patient on liothyronine to help with hormone function, and I suspect this will also help with mood and energy levels levels, so I prescribed 5 mcg today. Insulin resistance 01/22/2022 Assessment & Plan (10/12/2022 2:26 PM CDT): She lost 10 lb when taking mounjaro last year, however it was no longer covered by insurance, so it was discontinued. Will continue to work on regulating stress and exercising regularly. Diaphoresis 08/29/2021 03/04/2023 Assessment & Plan (08/29/2021 9:42 AM CDT): Increasingly diaphoretic since she stopped . This will likely improve over time, however we will rule out thyroid dysfunction and/ or nutritional deficiency. Weight gain 08/29/2021 10/12/2022 Assessment & Plan (08/29/2021 9:41 AM CDT): Concerned about weight gain since she had her baby despite rigorous exercise and mindful eating. We will assess for thyroid dysfunction and explore other options that include medications (contrave, for example) to help with weight loss. Absolute anemia 08/29/2021 03/04/2023 PSVT (paroxysmal supraventri cular tachycardia) 05/29/2021 10/16/2022 03/28/2023 depression 02/10/20212022 Assessment & Plan (03/27/2021 2:18 PM CDT): Significant improvement since starting sertraline. Will continue on current dose. Assessment & Plan (02/20/2021 8:04 PM CDT): She has hx of bowen/ depression, which has worsened since giving and going back to work. I'm evaluating for thyroid abnormality and nutritional deficiency to see if that is contributing. I'm also increasing dose of zoloft to 100 mg today. BOWEN (generalized anxiety disorder) 02/10/2021 03/28/2023 Overview (03/04/2023): Chronic. Stable on medication. Continue. Monitor closely for worsening of symptoms around delivery/. . Encouraged counseling Assessment & Plan (10/12/2022 2:27 PM CDT): She is concerned that sertraline could be affecting her weight, however they are other factors likely playing a role. We discussed that she could try going down on the dose to 50 mg in the future, however we do not want to make any drastic changes since recent IVF transfer. Will continue on 100 mg for now. Assessment & Plan (02/13/2022 6:48 AM CDT): Stable on current dose of sertraline. No changes. Assessment & Plan (08/29/2021 9:40 AM CDT): Anxiety is currently manageable on 150 mg of sertraline. Assessment & Plan (03/27/2021 2:18 PM CDT): Stable on current dose of sertraline. No changes today. She has gone back yoga, which has also been quite helpful. Trigger point of thoracic region 02/10/2021 03/28/2023 Assessment & Plan (03/27/2021 2:19 PM CDT): She had multiple trigger points and rhomboids and levator scapula muscles. Injected today with Kenalog and lidocaine. We discussed this this could temporarily reduce breast milk production, however after discussion of risks and benefits, she elected to proceed with injections. Assessment & Plan (02/20/2021 8:07 PM CDT): She is requesting steroid injection today for shoulder pain and thoracic trigger points. I advised her that I would like close follow up, so I will inject when I see her in 4-6 weeks. Fatigue 02/10/2021 03/04/2023 Assessment & Plan (03/27/2021 2:20 PM CDT): This has mostly resolved since she started supplementing with iron after we discovered low ferritin levels likely due to hemorrhage. She is also taking Vitamin D. History of hemorr rosalind, currently in second trimester 02/10/2021 08/15/2023 Overview (05/31/2023): - Patient had a vaginal delivery 10/2020 complicated by hemorrhage, history concerning for abruption - Discharge hgb 7.8, did not require transfusion Plan [] Management of antepartum anemia as needed [] Consider crossmatching for blood on admission to labor and delivery. Also discussed 2 PIVs in labor which patient is amenable to. [] Prophylactic misoprostol at time of delivery given prior experience Assessment & Plan (03/28/2023 9:36 AM CDT): - Patient had a vaginal delivery 10/2020 complicated by hemorrhage, history concerning for abruption - Discharge hgb 7.8, did not require transfusion Plan [] Management of antepartum anemia as needed [] Consider crossmatching for blood on admission to labor and delivery [] Prophylactic misoprostol at time of delivery given prior experience Assessment & Plan (02/20/2021 8:06 PM CDT): Significant blood loss when giving . Likely anemic given her other symptoms. Checking ferritin and iron panel today. (spontaneous vaginal delivery) 12/12/2020202203/28/2023 Overview (10/16/2022): Patient s/p spontaneous vaginal delivery on 10/24/20 Doing well, meeting all milestones Lochia absent EPDS Total Score: [place] Depression Scale Total: 0 Mothers who score > 13 are likely to be suffering from a depressive illness. Scoring: Maximum score: 30 Possible Depression: 10 or greater Last Assessment & Plan: discontinue current restrictions Contraception declined due hx of infertility requiring ART EPDS score above Discussed findings with patient, will monitor for si/sx of PPD Sinus tachycardia 09/23/2020 10/16/2022 03/28/2023 Maternal arrhythmia affectin g , antepartum 08/25/2020 10/16/2022 08/15/2023 Overview (06/19/2023): - MDT Dual pacemaker placed for intermittent complete heart block with syncopal episodes - Patient also with PSVT on propranolol - following with Dr. Cristobal ([facility], records in [facility]) - last interrogated 10/29/22 with pacing <0.1%. - Dr Edwards also following for Cardiology care. Continue propranalol 10mg AM/20mg PM. Follow up with cardiac MRI and arrhyhtmia genetic panel Plan [x] Continue close follow-up with Dr. Cristobal, 07/19/23 [x] Continue propranolol Maternal Risk Assessment: - CARPREG II: Score: 3 Estimated Risk: 15% - MADISON: Score: 3 Estimated Risk: 43.1% - WHO Class: II OVERALL ESTIMATED RISK OF MAJOR CARDIAC EVENT: 10% Most likely adverse cardiac events include: Arrhythmia specifically, paroxysmal nonsustained ventricular tachycardia in sinus tachycardia Risk: The risk of congenital heart defects is no increased risk. A echocardiogram IS NOT recommended during the second trimester due to maternal cardiac condition. Antepartum Management: - Clinical follow up by our office is recommended as follows: . - Serial cardiac imaging IS NOT required. - Medical therapy will include: propanolol 10mg qAM and 20mg qPM Delivery Planning: - Mode of delivery: No cardiac contraindication to vaginal delivery at this time - Mode of anesthesia: No cardiac contraindication anesthesia; per anesthesia recommendations - SBE prophylaxis is NOT indicated per 2020 ACC/AHA valve guidelines. - Telemetry monitoring is recommended. - Fluids: Usual management - Filtered lines ARE NOT required - Any other specific precautions: Daily BMP and Mg; replete for K >4 and Mg>2 Post- Management: - Volume overload 3 anticipated 24-72 hours post-delivery. - Post- monitoring: Telemetry - Other post- recommendations: Daily BMP and Mg; replete for K >4 and Mg>2 Assessment & Plan (04/25/2023 12:55 PM ROSE GRADING SUPERVISOR): - MDT Dual pacemaker placed for intermittent complete heart block with syncopal episodes - Patient also with PSVT on propranolol - following with Dr. Cristobal ([facility], records in [facility]) - last interrogated 10/29/22 with pacing <0.1%. - Dr Edwards also following for second opinion. Continue propranalol 10mg AM/20mg PM. Follow up with cardiac MRI and arrhyhtmia genetic panel Plan [] Continue close follow-up with Dr. Cristobal, 04/29 [] Continue propranolol [] Serial growth scans - insurance does not cover growth scans (even with pre auth - we have reached out to pre-arrival to confirm) so desires to just have one 3rd trimester scan - will plan at 34w Assessment & Plan (03/28/2023 9:38 AM CDT): - MDT Dual pacemaker placed for intermittent complete heart block with syncopal episodes - Patient also with PSVT on propranolol - following with Dr. Cristobal ([facility], records in [facility]) - last interrogated 10/29/22 with pacing <0.1%. - Dr Edwards also following for second opinion. Continue propranalol 10mg AM/20mg PM. Follow up with cardiac MRI and arrhyhtmia genetic panel Plan [] Continue close follow-up with Dr. Cristobal, 04/29 [] Continue propranolol [] Serial growth scans Assessment & Plan (12/20/2022 12:37 PM CDT): Given increased palpitations, I have recommended patient to reach out to Director Geothermal Operations to discuss increasing propranolol dose and interrogation. Anxiety during in third trimester, antepartum 04/18/2020 10/16/2022 08/15/2023 Overview (06/19/2023): - current regimen: sertraline 150 mg Recommendations [x] behavioral health services referral [x] Continue to monitor mood closely Assessment & Plan (04/25/2023 12:54 PM ROSE GRADING SUPERVISOR): - current regimen: sertraline 100mg daily - EPDS at IOB: 9 Recommendations [x] behavioral health services referral [] Continue to monitor mood closely Assessment & Plan (03/28/2023 9:36 AM CDT): - current regimen: sertraline 100mg daily - EPDS at IOB: 9 Recommendations [x] behavioral health services referral [] Continue to monitor mood closely [place] product of IVF 04/18/2020 10/17/1903/28/2023 Overview (10/16/2022): Male factor infertility Supervision of high-risk pre gnancy, third trimester 03/21/2020 10/16/2022 08/15/2023 Overview (06/19/2023): [x] Full M Care; [x] Blue Team Referring Provider: [] or Medicare Insurance [x] Dating Criteria: 5dET [x] Labs: Rh [A positive ], Ab [negative ], Rubella [immune ], HIV [NR ], HepBSAg [NR ], RPR [NR ], Hep C [NR ], Varicella [immune ], GC/CT [negative] [x] Genetic Screening: Low risk NIPT [x] CBC/Hgb : 13.1/40.1/265K [x] Early 1hr GTT (if indicated): ordered 6-135 [x] UCx: <100,000 insignificant growth [x] Pap: 02/2022 per patient (will request records) [x] LD ASA (if indicated) starting at 12 weeks: sent to pharmacy 11/19 [x] EPDS 9; PNB[facility] referral (if indicated) sent 11/19 2nd Tri Labs: [x] Anatomy ultrasound: completed and normal [x] CBC: 11.7/36.5/197K, 1hr gtt at 24-28wks: 116 [x] Flu Shot (Feb-May): 03/28/23 ck [x] Tdap (27-36wks): 03/28/23 ck [x] Rhogam at 28 wks (if Rh neg): not indicated [] CBC/HIV/RPR/T&S: ordered, not done [x] GBS: collected 05/31 with clindamycin sensitivities- negative [x] testing: weekly at 36 weeks (IVF) [x] Discussed RSV vaccine - considering > declined 05/16/2023 Counseling [x] MOD: Anticipate vaginal. After extensive counseling pt now plans for IOL at 40w- scheduled on 06/25/2023 at 0830- pt letter sent [x] Place of delivery: [facility] [x] Last clinic visit SVE: 1.5/2/posterior [] IOL start agent: MFM fellow/attending to discuss again with pt upon admission after initial cervical exam [x] Epidural: desires [] Consents signed: upon admission [x] MOC: declines [x] Method of feeding: breast - mother is customer care voice consultant [x] Livestock Exhibitor: [x] PP Depression Discussed: Patient had a very difficult time with her last IOL. She feels had she been able to be apart of the plan/decision making that her course may have been different. She would like to be counseled every step of the process regarding options and would like shared decision making as much as possible. She originally did not wan to be induced but following counseling does not want to go past 40w and therefore was scheduled for an IOL. She is hoping to avoid a cook 2/2 her last course but willing to consider if most appropriate option. Assessment & Plan (04/25/2023 12:56 PM ROSE GRADING SUPERVISOR): [] Co-management vs. [x] Full MFM Care; [] Red Team [x] Blue Team Referring Provider: [] or Medicare Insurance [x] Dating Criteria: 5dET [x] Labs: Rh [A positive ], Ab [negative ], Rubella [immune ], HIV [NR ], HepBSAg [NR ], RPR [NR ], Hep C [NR ], Varicella [immune ], GC/CT [negative] [x] Genetic Screening: Low risk NIPT [x] CBC/Hgb : 13.1/40.1/265K [x] Early 1hr GTT (if indicated): ordered 11/19-135 [x] UCx: <100,000 insignificant growth [x] Pap: 02/2022 per patient (will request records) [x] LD ASA (if indicated) starting at 12 weeks: sent to pharmacy 11/19 [x] EPDS 9; PNBHS referral (if indicated) sent 11/19 2nd Tri Labs: [x] Anatomy ultrasound: completed and normal [x] CBC: 11.7/36.5/197K 1hr gtt at 24-28wks: 116 [x] Flu Shot (Feb-May): 03/28/23 ck [x] Tdap (27-36wks): 03/28/23 ck [] Rhogam at 28 wks (if Rh neg): not indicated 3rd Tri Labs: next visit [] CBC/HIV/RPR/T&S: [] GBS: [] GC/CT (if indicated): [] testing: weekly at 36 weeks [x] Discussed RSV vaccine - considering Counseling [] MOD: anticipate vaginal, would like to avoid IOL if possible given prior experience. [] Place of delivery: [facility] [] Last clinic visit SVE: [] IOL start agent: [] Epidural: [] Consents signed: [] MOC: [x] Method of feeding: breast - mother is customer care voice consultant [] Livestock Exhibitor: [x] PP Depression Discussed: Assessment & Plan (03/28/2023 9:39 AM CDT): Second trimester labs today RTC 2 wks, then 4 wks with growth [] Co-management vs. [x] Full MFM Care; [] Red Team [x] Blue Team Referring Provider: [] or Medicare Insurance [] Dating Criteria: 5dET [] Labs: Rh [A positive ], Ab [negative ], Rubella [immune ], HIV [NR ], HepBSAg [NR ], RPR [NR ], Hep C [NR ], Varicella [immune ], GC/CT [negative] [x] Genetic Screening: Low risk NIPT [x] CBC/Hgb : 13.1/40.1/265K [x] Early 1hr GTT (if indicated): ordered 11/19-135 [x] UCx: <100,000 insignificant growth [x] Pap: 02/2022 per patient (will request records) [x] LD ASA (if indicated) starting at 12 weeks: sent to pharmacy 11/19 [x] EPDS 9; PNBHS referral (if indicated) sent 11/19 2nd Tri Labs: [x] Anatomy ultrasound: i [] CBC/1hr gtt at 24-28wks: ordered for lab [] Flu Shot (Feb-May): [] Tdap (27-36wks): [] Rhogam at 28 wks (if Rh neg): 3rd Tri Labs: [] CBC/HIV/RPR/T&S: [] GBS: [] GC/CT (if indicated): [] testing: weekly at 36 weeks Counseling [] MOD: anticipate vaginal, would like to avoid IOL if possible given prior experience. [] Place of delivery: [facility] [] Last clinic visit SVE: [] IOL start agent: [] Epidural: [] Consents signed: [] MOC: [] Method of feeding: [] Livestock Exhibitor: [] PP Depression Discussed: Headache 03/17/2020 10/16/2022 03/04/2023 Overview (10/16/2022): - Cat scan of head ( normal findings ) Somatic dysfunction of thoracic region 03/17/202003/28/2023 Overview (10/16/2022): get massage today or tomorrow cont motrin if worsens or no improvement f/u for reeval. she stated felt better after tx so likely will not f/u Pacemaker 11/27/2019 11/19/2022 Overview (09/29/2022): Ms. Mejia has a lifelong history of racing heartbeats, intermittent dizziness, recurrent syncope preceded by warmth, diaphoresis and nausea. She had a tilt- table test in the past by an applied behavior science specialist which demonstrated vasovagal syncope. She was treated with sertraline for a while. A few years ago, she had a severe episode of recurrent syncope with scalp laceration. Transient complete heart block was documented by EMS so a permanent pacemaker was implanted. She is followed by [facility] Cardiology and EP, last in Jul. She has had a history of SVT but recently this has been well controlled with propanolol 20mg BID .She also has a history consistent with neurocardiogenic /vasovagal syncope /dysautonomia. She did well with this during her last . We discussed the physiologic changes that occur during and how this can exacerbate cardiac arrhythmias and neurocardiogenic symptoms. We anticipate the highest risk times will be 32 weeks forward at maximum plasma volume during , and during fluid shifts. Given how well she did during her last , we anticipate that she will also do well during subsequent ones. Our recommendations are: - Frequent checkups with Cardiology/EP during - Continue propanolol if symptoms well controlled, we would obtain serial growth scans and surveillance - Slow dose epidural, no contraindications to Valsalva - telemetry Assessment & Plan (02/20/2021 8:03 PM CDT): Complete heart block discovered last year prior to . Pacemaker was placed, and she has been doing well since then. Head injury 11/25/2019 10/16/2022 03/04/2023 Encounters Date Type Department Care Team Description 03/08/2025 1:00 PM CDT Telemedicine [facility] [address] [place] [address] Encounter for preconception consultation (Primary Dx) 02/23/2025 Results Follow-Up [facility] Medicine Dermatology [address] [place] [address] [address] [place] [phone] Aurelia Osei MD Surgical pathology 02/19/2025 10:00 AM CDT Office Visit [facility] Dermatology [address] [place] [phone] Aurelia Osei MD Neoplasm of uncertain behavior of skin (Primary Dx); Encounter for post surgical wound check; Melanoma of right tenriism (HCC) 02/19/2025 Orders Only [facility] Medicine Pathology Outreach [address] [place] [address] Aurelia Osei MD Neoplasm of uncertain behavior of skin 02/10/2025 Telephone [facility] Maternal- Medicine [address] Health 7th Floor [address] [place] [address] Rosie Callahan, [facility] Appointment from Last 3 Months Immunizations Immunization Administration Dates Next Due DT 12/09/2002 DTaP 11/20/1993, 2,05/30/1990,04/07,1989 HPV, Unspecified 12/09/2007 Hep A, Adult 11/07/2009 Hep A, Pediatric 12/09/2007 Hep B, Adolescent or Pediatric 07/06/2003,2002,12/09/2002 Hib (PRP-D) 10/28/1991,12/09/1990,11/02/1990 Influenza, Quadrivalent, Flaca l Culture-based MDCK, Preservative Free, Antibiotic Free, Intramuscular 03/28/2023 Influenza, Unspecified 08/24/2024(Deferr ed: Patient Refused),03/26/2023(Deferred: Patient Refused),02/13/2022,03/01/2021, 020 MMR 10/30/1994,03/12/1991 Meningococcal Polysaccharide (Menomune) 12/09/2007 OPV 11/20/1993, 2,05/30/1990,04/07,1989 PPD TEST 01/16/2024 Tdap 03/28/2023,08/11/2020,11/25/2019 Surgical History Surgery Date Site/Laterality Comments OTHER SURGICAL HISTORY oral surgery wisdom teeth removed INSERT / REPLACE / REMOVE PACEMAKER 06/17/2019 - 06/16/2020 insertion OTHER SURGICAL HISTORY ivf egg retrieval x's 2 2019 HYSTEROSCOPY W/ POLYPECTOMY Medical History Medical History Date Comments Hx Other Medical 2010 Neurocardiogeni c syncope Hx Other Medical Minor fractures Hx Other Medical Arrhythmias GERD (gastroesophageal reflux disease) Since 2012 Anxiety Entire life Heart disease Neurocardiogenic Syncope/pacemaker 11/27/19 Seizures (HCC) 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 CAD or sudden ; Cancer Maternal Grandfather Berto Santamaria Colon cancer Maternal Grandfather Berto Santamaria No Known Problems Mother No Known Problems Sister Relation Name Status Comments Father Meniere's Disease Alive Maternal Grandfather Berto Santamaria Mother Alive Sister Alive Social History Tobacco Use Types Packs/Day Years Used Date Smoking Tobacco: Never Cigarettes Smokeless Tobacco: Never Alcohol Use Standard Drinks/Week Comments Yes 0 (1 standard drink = 0.6 oz pur e alcohol) Social Connection and Isolation Panel Answer Date Recorded In a typical week, how many times do you talk on the phone with family, friends, or neighbors? More than three times a week 06/26/2023 How often do you get togethe r with friends or relatives? More than three times a week 06/26/2023 How often do you attend [facility] or sikhism services? More than 4 times per year 06/26/2023 Do you belong to any clubs o r organizations such as caodaism groups, unions, fraternal or athletic groups, or school groups? Yes 06/26/2023 How often do you attend meet ings of the clubs or organizations you belong to? 1 to 4 times per year 06/26/2023 Are you , , di vorced, , never , or living with a partner? 06/26/2023 AUDIT-C Answer Date Recorded Q1: How often do you have a drink containing alc ohol? Monthly or less 06/18/2024 Q2: How many drinks containi ng alcohol do you have on a typical day when you are drinking? 1 or 2 06/18/2024 Q3: How often do you have si x or more drinks on one occasion? Less than monthly 06/18/2024 Overall Financial Resource Strain (CARDIA) Answe r Date Recorded How hard is it for you to pa y for the very basics like food, housing, medical care, and heating? Not hard at all 06/26/2023 PHQ-2 Answer Date Recorded PHQ-2 Total Score (If total score is 3 or more points, staff should administer the PHQ-9) 6 03/06/2024 Hunger Vital Sign Answer Date Recorded Within the past 12 months, y ou worried that your food would run out before you got the money to buy more. Never true 06/26/19 24 Within the past 12 months, t he food you bought just didn't last and you didn't have money to get more. Never true 06/26/2023 PRAPARE - Transportation Answer Date Re corded In the past 12 months, has l ack of transportation kept you from medical appointments or from getting medications? No 06/17 In the past 12 months, has l ack of transportation kept you from meetings, work, or from getting things needed for daily living? No 06/26/2023 Housing Stability Vital Sign Answer Bucky e Recorded In the last 12 months, was t here a time when you were not able to pay the mortgage or rent on time? No 06/26/2023 In the last 12 months, how many places have you lived? 1 06/26/2023 In the last 12 months, was t here a time when you did not have a steady place to sleep or slept in a retirement (including now)? No 06/26/2023 [place] Depression Scale Answer Date Recorded [place] Depression Scale Total 10 08/15/2023 The thought of harming myself has occurred to me . Never 08/15/2023 PHQ-9 Answer Date Recorded PHQ-9 Total Score 23 03/06/2024 Personal Safety Answer Date Recorded Have you ever been in or are you currently in a harmful physical or emotional relationship or is someone making you feel afraid or unsafe? 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 Not on file Not on file Not on file Obstetrics History Para Term AB IAB SAB Ectopic Multiple Livin g Live Births 2 2 2 0 2 2 Date Outcome GA Total Labor Labor/2nd/3rd Weight Sex Type Anes PTL Juani A1 A5 Name Clin 2020 Term 39w 1d 2h 15m 2h 10m/0h 05m 3.5 kg (7 lb 11.5 oz) F Vag-Sp ont Epidur al N Livin g 8 9 [facility], BABY GIRL LAWSONAND Chapin Isamar Nur MD Complications:None Delivery Location:[facility] ([facility]) 2023 Term 40w 2d 0h 23m 0h 08m/0h 10m/0h 05m 3.22 kg (7 lb 1.6 oz) F Vagina l Epidur al N Livin g 8 9 Ariecody Gomez [facility], Stephen chan MD Complications:None Delivery Location:[facility] ([facility]) Last Filed Vital Signs Vital Sign Reading Time Taken Comments Blood Pressure 118/70 06/18/2024 8:47 AM ROSE GRADING SUPERVISOR Pulse 105 06/18/2024 8:47 AM ROSE GRADING SUPERVISOR Temperature 36.6 C (97.8 F) 03/06/2024 11:23 AM CDT Respiratory Rate 16 06/18/2024 8:47 AM ROSE GRADING SUPERVISOR Oxygen Saturation 97% 06/18/2024 8:47 AM ROSE GRADING SUPERVISOR Inhaled Oxygen Concentration - - Weight 114 kg (251 lb 6.4 oz) 06/18/2024 8:47 AM ROSE GRADING SUPERVISOR Height 172.7 cm (5' 7.99) 06/18/2024 8:47 AM CS T Body Mass Index 38.23 06/18/2024 8:47 AM ROSE GRADING SUPERVISOR Plan of Treatment Health Maintenance Due Date Last Done Comments Cervical Cancer Screening 1989 HPV Vaccines (2 - 3-dose series) 01/06/2008 12/09/2007 Influenza Vaccine (#1) 2025 , 02/13/2022, 03/01/2021, Additional history exists Depression Screening 03/06/2025 03/06/2024, 03/06/2024, 08/15/2023, Additional history exists Regular Well Visit/Exam 18-64 03/06/2025 03/06/2024, 01/19/2022 DTaP/Tdap/Td Vaccine (10 - Td or Tdap) 03/28/2033 03/28/2023, 08/11/2020, 11/25/2019, Additional history exists Hepatitis B Screening Completed 07/06/2003 , 01/18/2003, 12/09/2002 Hepatitis C Screening Completed 11/19/2022 Pneumococcal vaccine <65 Aged Out No longer eligible based on patient's age to complete this topic Varicella Vaccines Discontinued Medical Devices Implanted Type Area Mailroom Associate Device Identifier Shelf Expiration Date Model / Serial / Lot Medtronic Ra Lead 5076-45-2021 Implanted:05/2022 (Quantity not on file) Lead Heart Medtronic Cardiac Rhythm Mgmt 5076-45 / [id number] / Medtronic Rv Lead 5076-52-2021 Implanted:05/2022 (Quantity not on file) Lead Heart Medtronic Cardiac Rhythm Mgmt 5076-52 / [id number] / Medtronic Pm [id number]/2 [id number] Implanted:05/2022 (Quantity not on file) Pacemaker Chest Wall Medtronic Cardiac Rhythm Mgmt [id number] / [id number] / Procedures Procedure Name Priority Date/Time Associated Diagnosis Comments SURGICAL PATHOLOGY Routine 02/19/2025 12 :00 AM CDT Neoplasm of uncertain behavior of skin HEPATITIS C ANTIBODY Routine 11/19/2022 10:48 AM CDT Supervision of high-risk of young primigravida from Last 3 Months or Most Recently Relevant to Health Maintenance Results * Surgical pathology (02/19/2025 12:00 AM CDT) Tissue (Skin, shave biopsy) 02/19/2025 02/19/2025 12:37 PM CDT Narrative DERMATOPATHOLOGY CENTER - 02/23/2025 2:03 PM CDT EPIC results best viewed via link to PDF [facility] [address] [place] [address], [address], [place] [address] [email or web address] Note to Patients: This report may contain a detailed description of human tissue sent by a health care provider to the laboratory for pathologic evaluation. The content of this report is essential for diagnosis and may provide important critical findings. This information may be unfamiliar to patients to review without a medical professional present. It is advised that the patient review this report in the presence of a health care provider who can answer questions and explain the details. FINAL REPORT Patient Information: PATIENT NAME: COLLETTE MEJIA SEX: F : 1990 (Age: 34) Specimen Information: COLLECTED: 02/19/2025 RECEIVED: 02/19/2025 REPORTED: 02/23/2025 Submitting Physician Information: Aurelia Ballard M.D. [facility], [address] [place] [address], [address] [place] [address], DERMATOPATHOLOGY REPORT RESULTS DIAGNOSIS: SKIN, LEFT UPPER BACK, SHAVE BIOPSY: COMPOUND MELANOCYTIC NEVUS, LENTIGINOUS TYPE ag/lac By this signature, I attest that the above diagnosis is based upon my personal examination of the slides(and/or other material indicated in the diagnosis). Loli Maravilla M.D. Report Electronically Reviewed and Signed Out By Loli Maravilla M.D. 02/23/2025 14:03:35 CLINICAL INFORMATION HISTORY OF INVASIVE MM, RULE OUT MELANOMA SPECIMEN DATA MICROSCOPIC DESCRIPTION: There is a proliferation of enlarged monomorphous melanocytes arranged as solitary units and small nests within the epidermis, at the dermo-epidermal junction and within the papillary dermis. (D22.9) GROSS DESCRIPTION: Received in a formalin-containing bottle is a superficial fragment of pale calderon, finely scaling, and semi-translucent skin measuring 1.1 by 0.9 by 0.1 cm. The surgical margin is inked blue. The specimen bears a centrally located, calderon, variegated, scaly area measuring 0.6 by 0.6 cm. The specimen is sectioned into 3 pieces and submitted entirely in a single cassette. Due to shrinkage, measurements may be different than those at the time of procedure. [facility] Clerical Data A; [id number] The characteristics of special, immunohistochemical, and immunofluorescence stains and in-situ hybridization tests performed by the [facility] were deemed acceptable in ongoing engagement quality consultant measures and in compliance with regulations drawn from the Clinical Laboratory Improvement Act pe5154 (CLIA '88). Control reactions for all stains performed were deemed adequate and appropriate by a pathologist prior to evaluation of patient tissue. Some diagnoses were rendered with the assistance of laboratory-developed tests utilizing analyte-specific reagents; the performance characteristic of these tests were determined by [facility] and are not cleared or approved by the [place] Food an Drug administration. Laboratory developed test may only be performed in a facility that is certified by the [facility] as a high-complexity laboratory under CLIA '88. These tests are used for clinical purposes and are not investigational. Aurelia Ballard MD LAB PATHOLOGY O RDERABLES Final Result DERMATOPATHOLOGY CENTER [facility] [place] [address] * Hepatitis C antibody (11/19/2022 10:48 AM CDT) Hep C Ab Nonreactive Nonreactive [facility] Comment:Antibodies to HCV no t detected. Does NOT exclude the possibility of recent exposure to HCV. Current interpretive data was last revised on 22 Blood 11/19/2022 10:4 8 AM CDT 11/19/2022 11:26 AM CDT Maida Salgado MD LAB MICROBIOLOGY - GENERAL ORDERABLES Final Result Performing Organization Address City/[facility] Co de Phone Number [facility] Department [place] [address] from Last 3 Months or Most Recently Relevant to Health Maintenance Insurance C[employer] [facility] PPO [facility] PPO CIG[employer] Member Subscriber Plan / Payer (Ef fective 2022-Present) Name:Collette Mejia Relation to Subscriber:Spouse Name:FARAZ MEJIA Date of :1986 (Home) Address: [address] [place] [phone] Payer ID:[id number] ([facility]) Type:HEALTHCARE/EXCHANGE Address: [facility] [id number] [place] [id number] CIGNA OPEN ACCESS CIGNA OPEN ACCESS Advance Directives For more information, please contact: [phone] * Full Code (Latest Code Status on File) Date Activated Date Inactivated Comments 06/25/2023 11:01 PM 06/27/2023 3:59 PM * Full Code Date Activated Date Inactivated Comments 06/25/2023 9:24 AM 06/25/2023 11:01 PM Full CPR in c ase of cardiopulmonary arrest Care Teams Pediatric Neurologist Relationship Specialty Start Date End Date Roxanna Flanagan, PUBLICITY DIRECTOR [address] [facility] [address] [place] [address] PCP - General Family Medicine 06/18/24 Aurelia Ballard MD [address] [facility] [address] [place] [address] Consulting Physician Dermatology 01/01/25 Catrachita Brown MD [address] [place] [address] Referring Physician Dermatology 01/01/25 Jada Mohan Primary Agricultural Engineer 03/04/25
== END 2025-05-04 22:20 | disposition home or self-care (01) ==
PROVIDERS: Physician Assistant; Emergency Provider Registered Nurse; PCP Nurse Practitioner Family
DX: K80.20 Calculus of gallbladder without cholecystitis without obstruction (principal); R10.11 Right upper quadrant pain; N39.0 Urinary tract infection, site not specified; F41.9 Anxiety disorder, unspecified; K21.9 Gastro-esophageal reflux disease without esophagitis
CPT/HCPCS: 36415; 71046; 74177; 80053; 81001; 81025; 83690; 85025; 85380; 85610; 85730; 87086; 96374; 96375; 99284; A9270; J1885; J2270; Q9967